=== PATIENT | female | born 1965 | race Caucasian/White ===

== ENCOUNTER 2016-09-18 10:22 | Emergency (ER) | payer MEDICAID, OTHER ==
[~2016-09-18] VITALS: Ht 162.6 cm; Wt 53.0 kg
[~2016-09-18 10:22] MED LIST: ACCUTES19; ALLO100T PO; AMIT100T2 PO; BLOO1KIT65; CARB200T PO; DOXY1CAP91 PO; GABA300C5 PO; IBUP-232 PO; INSU-150; LANTINJ SQ; LISI-519 PO; METF1000 PO; METO25TA3 PO; MEVA40TA PO; [UNRECOGNIZED DRUG - OTHER] SC
[2016-09-18 10:24] VITALS: BP 129/58; PULSE 100; RESP 20; TEMP 98.4; O2SAT 100
--- NOTE | 2016-09-18 10:49 | PD ---
HPI Chief Complaint: Injury Time Seen by Provider: 10:45 Travel History International Travel<30 days: Yes Contact w/Intl Traveler<30days: [place] Traveled to: [place] Traveled to known affect area: No History of Present Illness HPI 51-year-old female presents to the emergency department with complaint of left knee pain after tripping down 1 step yesterday and falling on her left knee. She said her knee cap dislocated yesterday and popped back into place and she is continuing to have knee pain and swelling today. She is ambulatory in the affected extremity. She says it feels like her knee is going to give out. She denies paresthesias, loss of sensation to the extremity. Denies fever, vomiting. Allergies to codeine. Patient has established primary care provider. Has no other medical complaints. No other modifying factors or associated signs and symptoms. PFSH Past Medical History Blood Disorders: No Cardiovascular Problems: Yes Diabetes: Yes Endocrine: No Gout: Yes Genitourinary: No Headaches: Yes Immune Disorder: No Musculoskeletal: No Reproductive: No Respiratory: No Migraines: No Seizures: Yes Ulcer: Yes (GASTRIC) Past Surgical History Abdominal Surgery: Yes Cardiac Surgery: No Ear Surgery: No Endocrine Surgery: No Eye Surgery: No Genitourinary Surgery: No Gynecologic Surgery: No Oral Surgery: No Thoracic Surgery: No Other Surgery: Yes (3 yrs. cyst removal of stomach) Social History Alcohol Use: Yes Tobacco Use: Yes (one pack daily) Substance Use: No Allergies-Medications (Allergen,Severity, Reaction): Coded Allergies: Codeine (Verified Allergy, Severe, 09/18/16) Reported Meds & Prescriptions Reported Meds & Active Scripts Active Ibuprofen 600 Mg Tab 600 Mg PO Q6H PRN Carbamazepine 200 Mg Tab 200 Mg PO TID Metoprolol Tartrate 25 Mg Tab 25 Mg PO BID Metformin (Metformin HCl) 1,000 Mg Tab 1,000 Mg PO BIDPC With meals Amitriptyline (Amitriptyline HCl) 100 Mg Tab 100 Mg PO HS Gabapentin 300 Mg Cap 300 Mg PO TID B-D Safety-[place] Insulin S 29G X 1/2" 0.5 ml 1 Mis Mis 1 Ea .ROUTE DIRECTED Lantus Solostar Pen Inj (Insulin Glargine) 300 Unit/3 Ml Pen 35 Units SQ BID Ibuprofen 600 Mg Tab 600 Mg PO Q6H PRN Allopurinol 100 Mg Tab 100 Mg PO DAILY Doxycycline (Doxycycline (Monohydrate)) 100 Mg Cap 1 Cap PO BID Lisinopril 5 Mg Tab 5 Mg PO DAILY Metformin (Metformin HCl) 1,000 Mg Tab 1,000 Mg PO BIDPC With meals Accu-Chek Strips Gisele Plus (Blood Glucose Test Strips) 1 Ayse Ayse 1 Strips .ROUTE DIRECTED check sugar 3 times a day Accu-Chek Gisele Connect W/Device (Device) 1 Kit Kit 1 Kit .ROUTE DIRECTED check glucose 3 times a day Lovastatin 40 Mg Tab 40 Mg PO HS [ascensia contour] 1 SC TID Review of Systems Except as stated in HPI: all other systems reviewed are Neg Physical Exam Narrative GENERAL: Well-nourished, well-developed female patient, in no acute distress; afebrile, nontoxic-appearing SKIN: Warm and dry. HEAD: Atraumatic. Normocephalic. EYES: Pupils equal and round. No scleral icterus. No injection or drainage. ENT: Mucosa pink and moist. Airway patent. NECK: Trachea midline. CARDIOVASCULAR: Regular rate. RESPIRATORY: No accessory muscle use. GASTROINTESTINAL: Flat. MUSCULOSKELETAL: Left non/edematous, non/erythematous, and without ecchymosis; full range of motion and flexion to 90; point tenderness to the [-] aspect; joint stable with negative drawer test; no obvious deformity. Left Lower extremity is supple and non-tense with 2+ pedal pulse and sensory intact and without erythema or edema. Ambulatory in room with a limp to the left lower extremity. NEUROLOGICAL: Awake and alert. Oriented 3. No obvious cranial nerve deficits. Motor grossly within normal limits. Normal speech. PSYCHIATRIC: Appropriate mood and affect; insight and judgment normal. Data Data Last Documented VS Vital Signs Date Time Temp Pulse Resp B/P Pulse Ox O2 Delivery O2 Flow Rate FiO2 09/18/16 10:24 98.4 100 20 129/58 100 Room Air Orders Knee, Complete (4vws) (09/18/16 10:30) [facility] Medical Decision Making Medical Screen Exam Complete: Yes Emergency Medical Condition: Yes Medical Record Reviewed: Yes Differential Diagnosis Patellar dislocation, patellar fracture, knee contusion, knee strain Narrative Course 51-year-old female with left knee injury. Left knee x-ray ordered. 1104: Left knee x-ray unremarkable. Crutches are provided for support. Patient has an Georges bandage for support. Instructed patient to follow-up with primary care provider. Ibuprofen prescribed for home. Patient verbalizes understanding and agreement with treatment plan. Patient is medically cleared and stable for discharge. Discussed reasons to return to the emergency department. Patient agrees with treatment plan. The patients vital signs are stable and the patient is stable for outpatient follow-up and treatment. Patient discharged home, stable and in no acute distress. Diagnosis Primary Impression: Left knee injury Qualified Code: S89.92XA - Left knee injury, initial encounter Additional Impression: Left knee pain Qualified Code: M25.562 - Left knee pain, unspecified chronicity Referrals: Orthopedist Primary Care Physician Patient Instructions: Crutch Instructions (ED), General Instructions, Knee Pain (ED) Additional Instructions: Tylenol or ibuprofen as needed and as directed to reduce pain and inflammation Rest, ice, compress, and elevate extremity to decrease pain and inflammation Knee brace for support Crutches for support Avoid aggravating activity; increase activity as tolerated Follow-up with primary care provider Follow-up with orthopedics Return to the emergency department immediately with worsening symptoms Med/Other Pt SpecificInfo: Prescription(s) given Scripts Ibuprofen 600 Mg [id number] Mg PO Q6H PRN (PAIN) #20 TAB Ref 0 Prov:Juany Constantino 09/18/16 Disposition: 01 DISCHARGE HOME Condition: Stable Juany Constantino Sep 18, 2016 10:49
--- NOTE | 2016-09-18 10:54 | RADRPT ---
EXAM DATE/TIME: 09/18/2016 10:42 [facility] COMPARISON: No previous studies available for comparison. INDICATIONS : Left knee pain; fell 2 days ago. MEDICAL HISTORY : None. SURGICAL HISTORY : None. ENCOUNTER: Initial ACUITY: 2 days PAIN SCORE: 9/10 LOCATION: Left medial knee FINDINGS: Four view examination of the left knee demonstrates no evidence of fracture or dislocation. Bony min eralization is normal. The articular surfaces are intact. The suprapatellar soft tissues have a nor mal configuration. CONCLUSION: Unremarkable examination of the left knee. Tobin Lozano MD on September 18, 2016 at 10:50 Board Certified Radiologist. This report was verified electronically.
[2016-09-18] MEDS ORDERED: IBUP-232 PO (10:58)
== END 2016-09-18 11:29 | disposition home or self-care (01) ==
LOC: NEPK 10:22
DX: S89.92XA Unspecified injury of left lower leg, initial encounter (principal); F17.210 Nicotine dependence, cigarettes, uncomplicated; W10.9XXA Fall (on) (from) unspecified stairs and steps, initial encounter
CPT/HCPCS: 73564; 99283; E0113

== ENCOUNTER 2016-09-20 11:23 | Emergency (ER) | payer MEDICARE, OTHER ==
[~2016-09-20] VITALS: Ht 162.6 cm; Wt 53.0 kg
[2016-09-20 11:28] VITALS: BP 191/83; PULSE 94; RESP 14; TEMP 98.2; O2SAT 98
[2016-09-20] MEDS ORDERED: DEXTROSE 50% IN WATER 50 ML SYRINGE ONE (11:34)
--- NOTE | 2016-09-20 11:36 | PD ---
HPI Chief Complaint: Neuro Symptoms/ Deficits Time Seen by Provider: 11:33 Travel History International Travel<30 days: No Contact w/Intl Traveler<30days: No History of Present Illness HPI The patient's 51 years old. She arrives by private vehicle. A friend of hers visited her home today and found her minimally responsive. She was last seen normal last night. She was hastily brought to the ER and here the patient was found to be hypoglycemic and received D50 as well as orange juice. Her mentation normalized however right upper and right lower extremity weakness was observed. PFSH Past Medical History Blood Disorders: No Cardiovascular Problems: Yes Cerebrovascular Accident: Yes (TIA) Diabetes: Yes Endocrine: No Gout: Yes Genitourinary: No Headaches: Yes Immune Disorder: No Musculoskeletal: No Reproductive: No Respiratory: No Migraines: No Seizures: Yes Ulcer: Yes (GASTRIC) Ovarian Cysts: Yes Past Surgical History Abdominal Surgery: Yes Cardiac Surgery: No Ear Surgery: No Endocrine Surgery: No Eye Surgery: No Genitourinary Surgery: No Gynecologic Surgery: Yes (OVARIAN CYSTS REMOVAL) Oral Surgery: No Thoracic Surgery: No Other Surgery: Yes (3 yrs. cyst removal of stomach) Social History Alcohol Use: Yes (OCCASIONAL) Tobacco Use: Yes (5 PER DAY) Substance Use: No Allergies-Medications (Allergen,Severity, Reaction): Coded Allergies: Codeine (Verified Allergy, Severe, 09/18/16) Reported Meds & Prescriptions Reported Meds & Active Scripts Active Ibuprofen 600 Mg Tab 600 Mg PO Q6H PRN Carbamazepine 200 Mg Tab 200 Mg PO TID Metoprolol Tartrate 25 Mg Tab 25 Mg PO BID Metformin (Metformin HCl) 1,000 Mg Tab 1,000 Mg PO BIDPC With meals Amitriptyline (Amitriptyline HCl) 100 Mg Tab 100 Mg PO HS Gabapentin 300 Mg Cap 300 Mg PO TID B-D Safety-[place] Insulin S 29G X 1/2" 0.5 ml 1 Mis Mis 1 Ea .ROUTE DIRECTED Lantus Solostar Pen Inj (Insulin Glargine) 300 Unit/3 Ml Pen 35 Units SQ BID Ibuprofen 600 Mg Tab 600 Mg PO Q6H PRN Allopurinol 100 Mg Tab 100 Mg PO DAILY Doxycycline (Doxycycline (Monohydrate)) 100 Mg Cap 1 Cap PO BID Lisinopril 5 Mg Tab 5 Mg PO DAILY Metformin (Metformin HCl) 1,000 Mg Tab 1,000 Mg PO BIDPC With meals Accu-Chek Strips Gisele Plus (Blood Glucose Test Strips) 1 Ayse Ayse 1 Strips .ROUTE DIRECTED check sugar 3 times a day Accu-Chek Gisele Connect W/Device (Device) 1 Kit Kit 1 Kit .ROUTE DIRECTED check glucose 3 times a day Lovastatin 40 Mg Tab 40 Mg PO HS [ascensia contour] 1 SC TID Review of Systems Except as stated in HPI: all other systems reviewed are Neg Physical Exam Narrative GENERAL: 51-year-old female well-nourished well-developed GCS of 14 (verbal 4) SKIN: Focused skin assessment warm/dry. HEAD: Atraumatic. Normocephalic. EYES: Pupils equal and round. No scleral icterus. No injection or drainage. ENT: No nasal bleeding or discharge. Mucous membranes pink and moist. NECK: Trachea midline. No JVD. CARDIOVASCULAR: Regular rate and rhythm. No murmur appreciated. RESPIRATORY: No accessory muscle use. Clear to auscultation. Breath sounds equal bilaterally. GASTROINTESTINAL: Abdomen soft, non-tender, nondistended. Hepatic and splenic margins not palpable. MUSCULOSKELETAL: No obvious deformities. No clubbing. No cyanosis. No edema. NEUROLOGICAL: GCS 14 (verbal 4). Handgrip is weak on the right compared to left. Elevation of the right leg is limited compared to the left side. There appears to be mild depression of the nasolabial fold on the right side. PSYCHIATRIC: Appropriate mood and affect; insight and judgment normal. Data Data Last Documented VS Vital Signs Date Time Temp Pulse Resp B/P Pulse Ox O2 Delivery O2 Flow Rate FiO2 09/20/16 11:49 98 09/20/16 11:45 97.6 93 16 178/86 Vital signs reviewed Orders Basic Metabolic Panel (Bmp) (09/20/16 11:33) Complete Blood Count With Diff (09/20/16 11:33) Blood Glucose (09/20/16 11:33) Ecg Monitoring (09/20/16 11:33) Iv Access Insert/Monitor (09/20/16 11:33) Oximetry (09/20/16 11:33) Sodium Chloride 0.9% Flush (Ns Flush) (09/20/16 11:45) Dextrose 50% In Laura (Vial) Inj (D50w (Vi (09/20/16 11:45) Dextrose 50% In Laura (Syr) Inj (D50w (Syr (09/20/16 11:34) Drug Screen, Random Urine (09/20/16 11:35) Ct Brain W/O Iv Contrast(Rout) (09/20/16 11:35) Blood Glucose (09/20/16 11:35) Blood Glucose (09/20/16 12:35) Alcohol (Ethanol) (09/20/16 11:40) Hepatic Functional Panel (09/20/16 11:40) Lipase (09/20/16 11:40) Labs Laboratory Tests Test 09/20/16 11:40 White Blood Count 19.0 TH/MM3 Red Blood Count 4.16 MIL/MM3 Hemoglobin 12.3 GM/DL Hematocrit 38.2 % Mean Corpuscular Volume 92.0 FL Mean Corpuscular Hemoglobin 29.7 PG Mean Corpuscular Hemoglobin 32.3 % Concent Red Cell Distribution Width 14.1 % Platelet Count 307 TH/MM3 Mean Platelet Volume 8.3 FL Neutrophils (%) (Auto) 68.3 % Lymphocytes (%) (Auto) 23.9 % Monocytes (%) (Auto) 7.5 % Eosinophils (%) (Auto) 0.1 % Basophils (%) (Auto) 0.2 % Neutrophils # (Auto) 13.0 TH/MM3 Lymphocytes # (Auto) 4.5 TH/MM3 Monocytes # (Auto) 1.4 TH/MM3 Eosinophils # (Auto) 0.0 TH/MM3 Basophils # (Auto) 0.0 TH/MM3 CBC Comment DIFF FINAL Differential Comment MDM Medical Decision Making Medical Screen Exam Complete: Yes Emergency Medical Condition: Yes Medical Record Reviewed: Yes Differential Diagnosis Stroke, TIA, hypoglycemia, electrolyte imbalance, radiculopathy, metabolic abnormality Narrative Course Patient elected to leave AGAINST MEDICAL ADVICE. The time of her departure she demonstrated normal speech memory and mentation. She had a brisk response to [place] juice and IV dextrose. At the time of her departure she demonstrated competence to understand that in so doing she placed herself at risk for permanent disability pain and suffering. Diagnosis Primary Impression: Left against medical advice Admitting Information Admitting Physician Requests: Observation Erick Smith MD Sep 20, 2016 11:36
[2016-09-20 11:40] VITALS: O2SAT 98
[2016-09-20 11:45] VITALS: BP 178/86; PULSE 93; RESP 16; TEMP 97.6; O2SAT 98
[2016-09-20] MEDS ORDERED: SODIUM CHLORIDE 0.9% FLUSH 5 ML FLUSH IV FLUSH PRN (11:45)
[2016-09-20] MEDS ORDERED: DEXTROSE 50% IN WATER 50 ML VIAL(D50) IV PUSH ONE (11:45)
--- NOTE | 2016-09-20 12:17 | RADRPT ---
EXAM DATE/TIME: 09/20/2016 12:00 [facility] COMPARISON: No previous studies available for comparison. INDICATIONS : Transient slurred speech and inability to ambulate. RADIATION DOSE: 56.35 CTDIvol (mGy) MEDICAL HISTORY : Cerebrovascular disease. Cardiovascular disease Hypertension. SURGICAL HISTORY : None. ENCOUNTER: Initial ACUITY: 1 day PAIN SCALE: 0/10 LOCATION: cranial TECHNIQUE: Multiple contiguous axial images were obtained of the head. Using automated exposure control and adj ustment of the mA and/or kV according to patient size, radiation dose was kept as low as reasonably a chievable to obtain optimal diagnostic quality images. DICOM format image data is available electro nically for review and comparison. FINDINGS: CEREBRUM: The ventricles are normal for age. No evidence of midline shift, mass lesion, hemorrhage or acute in farction. No extra-axial fluid collections are seen. POSTERIOR FOSSA: The cerebellum and brainstem are intact. The 4th ventricle is midline. The cerebellopontine angle i s unremarkable. EXTRACRANIAL: The visualized portion of the orbits is intact. SKULL: The calvaria is intact. No evidence of skull fracture. CONCLUSION: No acute disease. Trevor Davis MD FACR on September 20, 2016 at 12:14 Board Certified Radiologist. This report was verified electronically.
[2016-09-20 12:19] LABS: BASOPHIL % 0.2 % (0.0-2.0); EOSINOPHIL % 0.1 % (0.0-4.0); HEMATOCRIT 38.2 % (35.0-46.0); HEMO FLAGS DIFF FINAL; LYMPH % 23.9 % (9.0-44.0); LYMPHOCYTE # 4.5 TH/MM3 (1.0-4.8); MEAN CORPUSCULAR HEMOGLOBIN 29.7 PG (27.0-34.0); MEAN CORPUSCULAR HGB CONC 32.3 % (32.0-36.0); MONO % 7.5 % (0.0-8.0); NEUT % 68.3 % (16.0-70.0); PLATELET COUNT 307 TH/MM3 (150-450); RED BLOOD COUNT 4.16 MIL/MM3 (4.00-5.30); RED CELL DISTRIBUTION WIDTH 14.1 % (11.6-17.2)
== END 2016-09-20 12:50 | disposition left against medical advice (07) ==
LOC: NEPC 11:23
DX: E11.649 Type 2 diabetes mellitus with hypoglycemia without coma (principal); M10.9 Gout, unspecified; M62.81 Muscle weakness (generalized); R56.9 Unspecified convulsions; F17.200 Nicotine dependence, unspecified, uncomplicated; Z79.4 Long term (current) use of insulin; Z79.899 Other long term (current) drug therapy; Z86.73 Personal history of transient ischemic attack (TIA), and cerebral infarction without residual deficits
CPT/HCPCS: 70450; 80048; 80076; 80307; 83690; 85025; 96374

== ENCOUNTER 2016-10-15 17:23 | Emergency (ER) | payer MEDICARE ==
[~2016-10-15] VITALS: Ht 162.6 cm; Wt 52.0 kg
[~2016-10-15 17:23] MED LIST changes: +FURO1TAB62 PO
[2016-10-15 17:25] VITALS: BP 142/78; PULSE 85; RESP 14; TEMP 98.2; O2SAT 99
[2016-10-15 20:32] VITALS: BP 189/94; PULSE 86; RESP 18; O2SAT 100
--- NOTE | 2016-10-15 20:57 | PD ---
HPI Chief Complaint: Edema Time Seen by Provider: 20:28 Travel History International Travel<30 days: No Contact w/Intl Traveler<30days: No Traveled to known affect area: No History of Present Illness HPI Patient is a 51-year-old female presents with some pain and swelling to bilateral lower extremities worsening over the past few days. Patient states been going on for approximately a week. Patient denies any shortness of breath decreased urine output. She states that she does take medicine for high blood pressure but is not aware of any history of CHF. Denies any cough congestion fevers or liver disease. PFSH Past Medical History Blood Disorders: No Cardiovascular Problems: Yes Cerebrovascular Accident: Yes (TIA) Diabetes: Yes (METFORMIN) Patient Takes Glucophage: Yes Diminished Hearing: No Endocrine: No Gastrointestinal Disorders: No Gout: Yes Genitourinary: No Headaches: Yes Immune Disorder: No Musculoskeletal: No Reproductive: No Respiratory: No Migraines: No Seizures: Yes Ulcer: Yes (GASTRIC) Tetanus Vaccination: < 5 Years Influenza Vaccination: Yes ?: Not Ovarian Cysts: Yes Past Surgical History Abdominal Surgery: Yes Cardiac Surgery: No Ear Surgery: No Endocrine Surgery: No Eye Surgery: No Genitourinary Surgery: No Gynecologic Surgery: Yes (OVARIAN CYSTS REMOVAL) Neurologic Surgery: No Oral Surgery: No Thoracic Surgery: No Other Surgery: Yes (3 yrs. cyst removal of stomach) Social History Alcohol Use: No Tobacco Use: Yes (5 cig a day, today) Substance Use: No Allergies-Medications (Allergen,Severity, Reaction): Coded Allergies: Codeine (Verified Allergy, Severe, 10/15/16) Reported Meds & Prescriptions Reported Meds & Active Scripts Active Lasix (Furosemide) 20 Mg Tab 20 Mg PO DAILY Lasix (Furosemide) 20 Mg Tab 20 Mg PO DAILY Lantus Solostar Pen Inj (Insulin Glargine) 300 Unit/3 Ml Pen 30 Units SQ BID Ibuprofen 600 Mg Tab 600 Mg PO Q6H PRN Carbamazepine 200 Mg Tab 200 Mg PO TID Metoprolol Tartrate 25 Mg Tab 25 Mg PO BID Metformin (Metformin HCl) 1,000 Mg Tab 1,000 Mg PO BIDPC With meals Amitriptyline (Amitriptyline HCl) 100 Mg Tab 100 Mg PO HS Gabapentin 300 Mg Cap 300 Mg PO TID B-D Safety-[place] Insulin S 29G X 1/2" 0.5 ml 1 Mis Mis 1 Ea .ROUTE DIRECTED Allopurinol 100 Mg Tab 100 Mg PO DAILY Doxycycline (Doxycycline (Monohydrate)) 100 Mg Cap 1 Cap PO BID Lisinopril 5 Mg Tab 5 Mg PO DAILY Metformin (Metformin HCl) 1,000 Mg Tab 1,000 Mg PO BIDPC With meals Accu-Chek Strips Gisele Plus (Blood Glucose Test Strips) 1 Ayse Ayse 1 Strips .ROUTE DIRECTED check sugar 3 times a day Accu-Chek Gisele Connect W/Device (Device) 1 Kit Kit 1 Kit .ROUTE DIRECTED check glucose 3 times a day Lovastatin 40 Mg Tab 40 Mg PO HS [ascensia contour] 1 SC TID Review of Systems Except as stated in HPI: all other systems reviewed are Neg Physical Exam Narrative GENERAL: Well-developed well-nourished, thin but in no obvious distress. SKIN: Focused skin assessment warm/dry. HEAD: Atraumatic. Normocephalic. EYES: Pupils equal and round. No scleral icterus. No injection or drainage. ENT: No nasal bleeding or discharge. Mucous membranes pink and moist. NECK: Trachea midline. No JVD. CARDIOVASCULAR: Regular rate and rhythm. No murmur appreciated. 2+ bilateral equal pulses in all 4 extremities. RESPIRATORY: No accessory muscle use. Clear to auscultation. Breath sounds equal bilaterally. GASTROINTESTINAL: Abdomen soft, non-tender, nondistended. Hepatic and splenic margins not palpable. MUSCULOSKELETAL: No obvious deformities. No clubbing. No cyanosis. 2+ pitting edema from the tibial prominence distally over both lower extremities. No skin breakdown no cellulitis. Homans sign is negative. NEUROLOGICAL: Awake and alert. No obvious cranial nerve deficits. Motor grossly within normal limits. Normal speech. PSYCHIATRIC: Appropriate mood and affect; insight and judgment normal. Data Data Last Documented VS Vital Signs Date Time Temp Pulse Resp B/P Pulse Ox O2 Delivery O2 Flow Rate FiO2 10/16/16 00:22 76 16 170/85 99 Room Air 10/15/16 17:25 98.2 Orders Complete Blood Count With Diff (10/15/16 21:07) Comprehensive Metabolic Panel (10/15/16 21:07) Urinalysis - C+S If Indicated (10/15/16 21:07) Iv Access Insert/Monitor (10/15/16 21:07) Ecg Monitoring (10/15/16 21:07) Oximetry (10/15/16 21:07) Sodium Chloride 0.9% Flush (Ns Flush) (10/15/16 21:15) Chest, Pa & Lat (10/15/16 ) Urine Culture (10/15/16 21:40) Furosemide (Lasix) (10/15/16 22:30) Electrocardiogram (10/15/16 ) Troponin I (10/15/16 21:10) Labs Laboratory Tests Test 10/15/16 10/15/16 21:10 21:40 White Blood Count 11.2 TH/MM3 Red Blood Count 2.89 MIL/MM3 Hemoglobin 9.1 GM/DL Hematocrit 27.9 % Mean Corpuscular Volume 96.4 FL Mean Corpuscular Hemoglobin 31.5 PG Mean Corpuscular Hemoglobin 32.7 % Concent Red Cell Distribution Width 14.8 % Platelet Count 333 TH/MM3 Mean Platelet Volume 8.3 FL Neutrophils (%) (Auto) 51.1 % Lymphocytes (%) (Auto) 40.0 % Monocytes (%) (Auto) 6.7 % Eosinophils (%) (Auto) 1.4 % Basophils (%) (Auto) 0.8 % Neutrophils # (Auto) 5.7 TH/MM3 Lymphocytes # (Auto) 4.5 TH/MM3 Monocytes # (Auto) 0.8 TH/MM3 Eosinophils # (Auto) 0.2 TH/MM3 Basophils # (Auto) 0.1 TH/MM3 CBC Comment DIFF FINAL Differential Comment Sodium Level 142 MEQ/L Potassium Level 4.0 MEQ/L Chloride Level 112 MEQ/L Carbon Dioxide Level 24.1 MEQ/L Anion Gap 6 MEQ/L Blood Urea Nitrogen 18 MG/DL Creatinine 0.76 MG/DL Estimat Glomerular Filtration 80 ML/MIN Rate Random Glucose 217 MG/DL Calcium Level 8.0 MG/DL Total Bilirubin 0.1 MG/DL Aspartate Amino Transf 17 U/L (AST/SGOT) Alanine Aminotransferase 23 U/L (ALT/SGPT) Alkaline Phosphatase 74 U/L Troponin I LESS THAN 0.02 NG/ML Total Protein 6.5 GM/DL Albumin 2.9 GM/DL Urine Color YELLOW Urine Turbidity HAZY Urine pH 7.5 Urine Specific [place] 1.024 Urine Protein NEG mg/dL Urine Glucose (UA) 1000 mg/dL Urine Ketones NEG mg/dL Urine Occult Blood NEG Urine Nitrite NEG Urine Bilirubin NEG Urine Urobilinogen LESS THAN 2.0 MG/DL Urine Leukocyte Esterase SMALL Urine RBC 11 /hpf Urine WBC 11 /hpf Urine Squamous Epithelial 6 /hpf Cells Microscopic Urinalysis Comment CULTURE INDICATED MDM Medical Decision Making Medical Screen Exam Complete: Yes Emergency Medical Condition: Yes Differential Diagnosis CHF, acute kidney injury, chronic kidney disease, liver disease, venous stasis, DVT unlikely. Narrative Course Patient roomed in emergency department, her laboratory workup is essentially negative, troponin, CBC CMP within normal limits. Patient EKG also reassuring. The patient's chest x-ray obtained which shows trace pleural effusions. I reviewed her x-ray and under well and with the amount of fluid on her lungs. Again the patient has denied shortness of breath to me. Discussed with her that we could consider putting her hospital for evaluation with echocardiogram that she would rather go home and follow-up with her primary care physician. She states that when she calls the primary care physician she usually can get in the same day. Given this I think that she can be started on low-dose Lasix to follow-up as an outpatient. Discussed signs symptoms that should prompt emergent revisit including shortness of breath fevers cough or congestion. She verbalized understanding and still wishes to go home. He is stable for discharge Diagnosis Primary Impression: Pedal edema Additional Impression: Pleural effusion Med/Other Pt SpecificInfo: Prescription(s) given Scripts Furosemide (Lasix)20 Mg Tab20 Mg PO DAILY #14 TAB Ref 0 Prov:Dong Mccoy MD 10/15/16 Disposition: 01 DISCHARGE HOME Condition: Stable Dong Mccoy MD Oct 15, 2016 20:57
[2016-10-15] MEDS ORDERED: SODIUM CHLORIDE 0.9% FLUSH 10 ML FLUSH IV FLUSH PRN (21:15)
--- NOTE | 2016-10-15 21:26 | RADRPT ---
EXAM DATE/TIME: 10/15/2016 21:17 [facility] COMPARISON: No previous studies available for comparison. INDICATIONS : Evaluate lung status. Bilateral leg swelling. MEDICAL HISTORY : Diabetes mellitus type II. SURGICAL HISTORY : None. ENCOUNTER: Initial ACUITY: 1 week PAIN SCORE: 0/10 LOCATION: Bilateral chest FINDINGS: PA and lateral views of the chest demonstrate the lungs to be hyperaerated without evidence of mass, infiltrate or effusion. Small pleural effusions. The cardiomediastinal contours are unremarkable. Os seous structures are intact. CONCLUSION: 1. Hyperaeration without infiltrate. 2. Small pleural effusions. Rodrigo Mathew MD on October 15, 2016 at 21:23 Board Certified Radiologist. This report was verified electronically.
[2016-10-15 21:44] LABS: AUTOMATED NEUTROPHIL # 5.7 TH/MM3 (1.8-7.7); BASOPHIL # 0.1 TH/MM3 (0-0.2); BASOPHIL % 0.8 % (0.0-2.0); EOSINOPHIL # 0.2 TH/MM3 (0-0.4); EOSINOPHIL % 1.4 % (0.0-4.0); HEMATOCRIT 27.9 % (35.0-46.0); HEMO FLAGS DIFF FINAL; LYMPHOCYTE # 4.5 TH/MM3 (1.0-4.8); MEAN CELL VOLUME 96.4 FL (80.0-100.0); MEAN CORPUSCULAR HEMOGLOBIN 31.5 PG (27.0-34.0); MEAN CORPUSCULAR HGB CONC 32.7 % (32.0-36.0); MONO % 6.7 % (0.0-8.0); NEUT % 51.1 % (16.0-70.0); PLATELET COUNT 333 TH/MM3 (150-450); RED BLOOD COUNT 2.89 MIL/MM3 (4.00-5.30); RED CELL DISTRIBUTION WIDTH 14.8 % (11.6-17.2); WHITE BLOOD COUNT 11.2 TH/MM3 (4.0-11.0)
[2016-10-15 21:49] LABS: ANION GAP 6 MEQ/L (5-15); AST (GOT) 17 U/L (15-37); BICARBONATE 24.1 MEQ/L (21.0-32.0); BLOOD UREA NITROGEN 18 MG/DL (7-18); CHLORIDE 112 MEQ/L (98-107); GLOMERULAR FILTRATION RATE 80 ML/MIN (>89); SODIUM (NA) 142 MEQ/L (136-145)
[2016-10-15 21:50] LABS: ALT (GPT) 23 U/L (10-53)
[2016-10-15 21:52] LABS: ALKALINE PHOSPHATASE 74 U/L (45-117); TOTAL BILIRUBIN ADULT 0.1 MG/DL (0.2-1.0)
[2016-10-15 21:56] LABS: BLOOD, URINE NEG (NEG); COMMENT (UR) CULTURE INDICATED; CULTURE IF INDICATED CULTURE INDICATED; GLUCOSE,URINE 1000 mg/dL (NEG); KETONE, URINE NEG (NEG); NITRITE,URINE NEG (NEG); PH, URINE 7.5 (5.0-8.5); SQUAMOUS EPITHELIAL CELL URINE 6 /hpf (0-5); URINE COLOR YELLOW (YELLW/STRAW)
[2016-10-15] MEDS ORDERED: FUROSEMIDE 20 MG TAB PO ONE (22:30)
[2016-10-15] MEDS ORDERED: FURO1TAB62 PO (22:31)
[2016-10-16 00:22] VITALS: BP 170/85; PULSE 76; RESP 16; O2SAT 99
--- NOTE | 2016-10-16 20:53 | EKG ---
Date Performed: 10/15/2016 Time Performed: 23:45:44 PTAGE: 51 years EKG: Sinus rhythm NORMAL ECG Compared to prior tracing no significant change DOCTOR: Selina Schilling Interpretating Date/Time 10/16/2016 20:52:17
[2016-10-18] MEDS ORDERED: FURO1TAB62 PO (15:10)
[2016-10-29] MEDS ORDERED: FURO1TAB62 PO (14:30)
== END 2016-10-15 23:50 | disposition home or self-care (01) ==
LOC: NEPD 17:23
DX: R60.9 Edema, unspecified (principal); J90 Pleural effusion, not elsewhere classified; E11.9 Type 2 diabetes mellitus without complications; M10.9 Gout, unspecified; R56.9 Unspecified convulsions; F17.210 Nicotine dependence, cigarettes, uncomplicated; Z86.73 Personal history of transient ischemic attack (TIA), and cerebral infarction without residual deficits; Z79.4 Long term (current) use of insulin
CPT/HCPCS: 71020; 80053; 81001; 84484; 85025; 87086; 93005; 99285

== ENCOUNTER 2017-01-07 09:12 | Observation (INO) | payer MEDICARE ==
[~2017-01-07] VITALS: Ht 165.1 cm; Wt 55.0 kg
[~2017-01-07 09:12] MED LIST changes: +ASPI81CH CHEW; -DOXY1CAP91 PO; +LIDO5%T TOPICAL; +LOVA40TA PO; -MEVA40TA PO; +NICO14DI T-DERMAL
[2017-01-07 09:14] VITALS: BP 155/73; PULSE 103; RESP 20; TEMP 99; O2SAT 96
--- NOTE | 2017-01-07 09:33 | PD ---
HPI Chief Complaint: Diabetic Time Seen by Provider: 09:33 Travel History International Travel<30 days: No Contact w/Intl Traveler<30days: No Traveled to known affect area: No History of Present Illness HPI 51-year-old female came to the emergency room with history of altered mental status. Her son brought her in and he is a one who is giving the history. As per him this has happened to her in the past few times and she needed to be brought to the emergency room. Altered mental status has been going on since yesterday but patient refused to come into the emergency room yesterday. Today she has been lethargic and not making sense when she talks. Vital signs were mostly stable. She is a diabetic and a bedside blood glucose was done which was 23. I was called emergently in the room since patient was a difficult IV access. No history of syncopal episode. No history of fever or chills. PFSH Past Medical History Narrative Medical List of her past medical, surgical, social and family history is reviewed from the nursing note. Blood Disorders: No Cardiovascular Problems: Yes Cerebrovascular Accident: Yes (TIA) Diabetes: Yes (METFORMIN) Diminished Hearing: No Endocrine: No Gastrointestinal Disorders: No Gout: Yes Genitourinary: No Headaches: Yes Immune Disorder: No Musculoskeletal: No Reproductive: No Respiratory: No Migraines: No Seizures: Yes Ulcer: Yes (GASTRIC) ?: Not Ovarian Cysts: Yes Past Surgical History Abdominal Surgery: Yes Cardiac Surgery: No Ear Surgery: No Endocrine Surgery: No Eye Surgery: No Genitourinary Surgery: No Gynecologic Surgery: Yes (OVARIAN CYSTS REMOVAL) Neurologic Surgery: No Oral Surgery: No Thoracic Surgery: No Other Surgery: Yes (3 yrs. cyst removal of stomach) Social History Alcohol Use: No Tobacco Use: Yes (5 cig a day, today) Substance Use: No Allergies-Medications (Allergen,Severity, Reaction): Coded Allergies: No Known Allergies (Unverified , 01/07/17) Comments No known drug allergies. Reported Meds & Prescriptions Reported Meds & Active Scripts Active Lidocaine Topical (Lidocaine HCl) 5 % Oint 1 Applic TOPICAL QID PRN Apply to area(s) of pain up to 4X per day Nicotine Patch (Nicotine) 14 Mg/24 Hr Patch 14 Mg T-DERMAL DAILY Aspirin 81 Mg Chew 81 Mg CHEW DAILY Lovastatin 40 Mg Tab 40 Mg PO DAILY Ibuprofen 600 Mg Tab 600 Mg PO Q6H PRN Lasix (Furosemide) 20 Mg Tab 20 Mg PO DAILY Lantus Solostar Pen Inj (Insulin Glargine) 300 Unit/3 Ml Pen 30 Units SQ BID Carbamazepine 200 Mg Tab 200 Mg PO TID Metoprolol Tartrate 25 Mg Tab 25 Mg PO BID Metformin (Metformin HCl) 1,000 Mg Tab 1,000 Mg PO BIDPC With meals Amitriptyline (Amitriptyline HCl) 100 Mg Tab 100 Mg PO HS Gabapentin 300 Mg Cap 300 Mg PO TID B-D Safety-Hutchinson Insulin S 29G X 1/2" 0.5 ml 1 Mis Mis 1 Ea .ROUTE DIRECTED Allopurinol 100 Mg Tab 100 Mg PO DAILY Lisinopril 5 Mg Tab 5 Mg PO DAILY Metformin (Metformin HCl) 1,000 Mg Tab 1,000 Mg PO BIDPC With meals Accu-Chek Strips Gisele Plus (Blood Glucose Test Strips) 1 Ayse Ayse 1 Strips .ROUTE DIRECTED check sugar 3 times a day Accu-Chek Gisele Connect W/Device (Device) 1 Kit Kit 1 Kit .ROUTE DIRECTED check glucose 3 times a day [ascensia contour] 1 SC TID Narrative Medication List of her home medications reviewed from the nursing note. Review of Systems Except as stated in HPI: all other systems reviewed are Neg Physical Exam Narrative GENERAL: Altered mental status, lethargic, moderate distress SKIN: Focused skin assessment warm/dry. HEAD: Atraumatic. Normocephalic. EYES: Pupils equal and round. No scleral icterus. No injection or drainage. ENT: No nasal bleeding or discharge. Dry mucous membrane NECK: Trachea midline. No JVD. CARDIOVASCULAR: Regular rate and rhythm. No murmur appreciated. RESPIRATORY: No accessory muscle use. Clear to auscultation. Breath sounds equal bilaterally. GASTROINTESTINAL: Abdomen soft, non-tender, nondistended. Hepatic and splenic margins not palpable. MUSCULOSKELETAL: No obvious deformities. No clubbing. No cyanosis. No edema. NEUROLOGICAL: GCS of 13. No obvious cranial nerve deficits. Motor grossly within normal limits. Normal speech. PSYCHIATRIC: Appropriate mood and affect; insight and judgment normal. Data Data Last Documented VS Vital Signs Date Time Temp Pulse Resp B/P (MAP) Pulse Ox O2 Delivery O2 Flow Rate FiO2 01/07/17 11:49 86 18 169/83 (111) 100 Room Air 01/07/17 10:33 2.00 01/07/17 09:14 99.0 Orders Orders Electrocardiogram (01/07/17 10:11) Ammonia (01/07/17 10:11) Complete Blood Count With Diff (01/07/17 10:11) Comprehensive Metabolic Panel (01/07/17 10:11) Creatine Kinase (Cpk) (01/07/17 10:11) Prothrombin Time / Inr (Pt) (01/07/17 10:11) Troponin I (01/07/17 10:11) Thyroid Stimulating Hormone (01/07/17 10:11) Urinalysis - C+S If Indicated (01/07/17 10:11) Lactic Acid Sepsis Protocol (01/07/17 10:11) Blood Culture (01/07/17 10:11) Chest, Single Ap (01/07/17 10:11) Ct Brain W/O Iv Contrast(Rout) (01/07/17 10:11) Blood Glucose (01/07/17 10:11) Ecg Monitoring (01/07/17 10:11) Iv Access Insert/Monitor (01/07/17 10:11) Oximetry (01/07/17 10:11) Dextrose 50% In Laura (Vial) Inj (D50w (Vi (01/07/17 10:15) Sodium Chloride 0.9% Flush (Ns Flush) (01/07/17 10:15) Sodium Chlor 0.9% 1000 Ml Inj (Ns 1000 M (01/07/17 10:11) Drug Screen, Random Urine (01/07/17 10:11) Alcohol (Ethanol) (01/07/17 10:11) Tylenol (Acetaminophen) (01/07/17 10:11) Salicylates (Aspirin) (01/07/17 10:11) Sodium Chlor 0.9% 1000 Ml Inj (Ns 1000 M (01/07/17 10:15) Blood Glucose (01/07/17 10:11) CKMB (01/07/17 10:10) CKMB% (01/07/17 10:10) Urine Culture (01/07/17 11:15) Ceftriaxone Inj (Rocephin Inj) (01/07/17 12:15) Admit Order (Ed Use Only) (01/07/17 12:44) Place In Observation (01/07/17 ) Vital Signs (Adult) Q4H (01/07/17 12:42) Activity Oob With Assistance (01/07/17 12:42) Bedside Glucose ELADIO.CSUGAR (01/07/17 12:42) Diet Diabetic (01/07/17 Lunch) Sodium Chloride 0.9% Flush (Ns Flush) (01/07/17 12:45) Sodium Chloride 0.9% Flush (Ns Flush) (01/07/17 21:00) Ondansetron Inj (Zofran Inj) (01/07/17 12:45) Comprehensive Metabolic Panel (01/08/17 06:00) Complete Blood Count With Diff (01/08/17 06:00) Pt Request For Service (01/07/17 12:42) Case Management Consult (01/07/17 12:42) Scd Bilateral/Knee High ELADIO.BID (01/07/17 12:42) Naloxone Inj (Narcan Inj) (01/07/17 12:45) Magnesium Hydroxide Liq (Milk Of Magnesi (01/07/17 12:45) Sennosides (Senokot) (01/07/17 12:45) Bisacodyl Supp (Dulcolax Supp) (01/07/17 12:45) Lactulose Liq (Lactulose Liq) (01/07/17 12:45) Urinalysis - C+S If Indicated (01/07/17 12:47) Labs Laboratory Tests Test 01/07/17 10:10 01/07/17 11:15 White Blood Count 13.4 TH/MM3 Red Blood Count 3.68 MIL/MM3 Hemoglobin 11.3 GM/DL Hematocrit 33.7 % Mean Corpuscular Volume 91.6 FL Mean Corpuscular Hemoglobin 30.7 PG Mean Corpuscular Hemoglobin Concent 33.5 % Red Cell Distribution Width 14.2 % Platelet Count 274 TH/MM3 Mean Platelet Volume 8.2 FL Neutrophils (%) (Auto) 64.4 % Lymphocytes (%) (Auto) 26.8 % Monocytes (%) (Auto) 8.0 % Eosinophils (%) (Auto) 0.4 % Basophils (%) (Auto) 0.4 % Neutrophils # (Auto) 8.7 TH/MM3 Lymphocytes # (Auto) 3.6 TH/MM3 Monocytes # (Auto) 1.1 TH/MM3 Eosinophils # (Auto) 0.1 TH/MM3 Basophils # (Auto) 0.1 TH/MM3 CBC Comment DIFF FINAL Differential Comment Prothrombin Time 10.9 SEC Prothromb Time International Ratio 1.0 RATIO Blood Urea Nitrogen 12 MG/DL Creatinine 0.53 MG/DL Random Glucose 210 MG/DL Total Protein 6.9 GM/DL Albumin 3.0 GM/DL Calcium Level 8.2 MG/DL Alkaline Phosphatase 79 U/L Aspartate Amino Transf (AST/SGOT) 23 U/L Alanine Aminotransferase (ALT/SGPT) 27 U/L Total Bilirubin 0.2 MG/DL Sodium Level 137 MEQ/L Potassium Level 3.3 MEQ/L Chloride Level 104 MEQ/L Carbon Dioxide Level 22.6 MEQ/L Anion Gap 10 MEQ/L Estimat Glomerular Filtration Rate 121 ML/MIN Lactic Acid Level 0.4 mmol/L Ammonia 29 MCMOL/L Total Creatine Kinase 309 U/L Creatine Kinase MB 4.4 NG/ML Creatine Kinase MB % 1.4 % Troponin I 0.03 NG/ML Thyroid Stimulating Hormone 3rd Gen 1.850 uIU/ML Acetaminophen Level LESS THAN 2.0 MCG/ML Ethyl Alcohol Level LESS THAN 3 MG/DL Urine Color YELLOW Urine Turbidity CLOUDY Urine pH 6.5 Urine Specific Jewett 1.013 Urine Protein TRACE mg/dL Urine Glucose (UA) 150 mg/dL Urine Ketones 10 mg/dL Urine Occult Blood NEG Urine Nitrite NEG Urine Bilirubin NEG Urine Urobilinogen LESS THAN 2.0 MG/DL Urine Leukocyte Esterase TRACE Urine RBC 1 /hpf Urine WBC 3 /hpf Urine WBC Clumps RARE Urine Squamous Epithelial Cells 49 /hpf Urine Transitional Epithelial Cells <1 /hpf Urine Bacteria RARE /hpf Urine Hyaline Casts 3 /lpf Microscopic Urinalysis Comment CATH-CULTURE IND Urine Opiates Screen NEG Urine Barbiturates Screen NEG Urine Amphetamines Screen NEG Urine Benzodiazepines Screen NEG Urine Cocaine Screen NEG Urine Cannabinoids Screen NEG [facility] Medical Decision Making Medical Screen Exam Complete: Yes Emergency Medical Condition: Yes Medical Record Reviewed: Yes Interpretation(s) Twelve-lead EKG was reviewed by me. Normal sinus rhythm, normal axis, nonspecific ST-T wave changes. Heart rate of 91 bpm Differential Diagnosis Hypoglycemia, metabolic encephalopathy, sepsis, intracranial bleed Narrative Course 12:15 PM since patient wasn't extremely poor peripheral IV access and required emergent hydration and D50 I decided to put a central line. Please refer to my procedure note. Patient tolerated the central line well. After D50 was given patient perked up quite away and GCS improved to 15. At that point she said that this has happened to her in the past. She denied doing any drugs or alcohol. She understood the gravity of the situation and has agreed to stay in the hospital. She was given 2 L of IV fluid bolus. Blood test results of back and are within acceptable limits. Patient does have a UTI. I've ordered IV Rocephin for her. I would like to admit the patient for altered mental status and continued blood sugar monitoring. Critical Care Narrative Aggregate critical care time was 60 minutes. Time to perform other separately billable procedures was not included in the critical care time. My time did not include minutes spent treating any other patients simultaneously or on activities that did not directly contribute to the patient's treatment. The services I provided to this patient were to treat and/or prevent clinically significant deterioration that could result in: Hypoglycemic coma, UTI, dehydration I provided critical care services requiring my management, as noted below: Chart data review, documentation time, medication orders and management, vital sign assessments/reviewing monitor data, ordering and reviewing lab tests, ordering and interpreting/reviewing x-rays and diagnostic studies, care of the patient and discussion of the patient with the admitting physicians. Procedures Procedure Narrative Emergency department US guided Internal Jugular was performed with patient consent. Linear probe was used in the transverse and sagittal views of the Internal Jugular to assist with vascular access. EKG Prior to Arrival: No Diagnosis Primary Impression: Hypoglycemic coma Additional Impressions: Dehydration UTI (urinary tract infection) Qualified Codes: N39.0 - Urinary tract infection, site not specified Admitting Information Admitting Physician Requests: Mateo Ramirez MD Jan 07, 2017 09:33
[2017-01-07] MEDS ORDERED: SODIUM CHLOR 0.9% 1000 ML INJ 1,000 ML IV SCH (10:11)
[2017-01-07] MEDS ORDERED: SODIUM CHLORIDE 0.9% FLUSH 5 ML FLUSH IV FLUSH PRN (10:15)
[2017-01-07] MEDS ORDERED: SODIUM CHLOR 0.9% 1000 ML INJ 1,000 ML IV ONE (10:15)
[2017-01-07] MEDS ORDERED: DEXTROSE 50% IN WATER 50 ML VIAL(D50) IV PUSH PRN (10:15)
[2017-01-07 10:33] VITALS: BP 142/87; PULSE 90; RESP 18; O2SAT 99
--- NOTE | 2017-01-07 10:43 | RADRPT ---
EXAM DATE/TIME: 01/07/2017 10:26 [facility] COMPARISON: No previous studies available for comparison. INDICATIONS : Congestion, short of breath, line placement MEDICAL HISTORY : None. SURGICAL HISTORY : None. ENCOUNTER: Initial ACUITY: 2 days PAIN SCORE: 0/10 LOCATION: Bilateral chest FINDINGS: A single view of the chest demonstrates the lungs to be symmetrically aerated without evidence of mas s, infiltrate or effusion. Left IJ central venous catheter with tip projecting over the central veno us system. No pneumothorax. The cardiomediastinal contours are unremarkable. Osseous structures are intact with some degenerative spurring of the lower dorsal spine. CONCLUSION: 1. Left IJ central venous catheter with tip projecting over the central venous system. 2. Lungs are clear. No pneumothorax. Benedict Tariq MD on January 07, 2017 at 10:40 Board Certified Radiologist. This report was verified electronically.
[2017-01-07 10:56] LABS: AUTOMATED NEUTROPHIL # 8.7 TH/MM3 (1.8-7.7); BASOPHIL # 0.1 TH/MM3 (0-0.2); BASOPHIL % 0.4 % (0.0-2.0); EOSINOPHIL # 0.1 TH/MM3 (0-0.4); EOSINOPHIL % 0.4 % (0.0-4.0); HEMATOCRIT 33.7 % (35.0-46.0); HEMO FLAGS DIFF FINAL; LYMPH % 26.8 % (9.0-44.0); LYMPHOCYTE # 3.6 TH/MM3 (1.0-4.8); MEAN CELL VOLUME 91.6 FL (80.0-100.0); MEAN CORPUSCULAR HEMOGLOBIN 30.7 PG (27.0-34.0); MEAN CORPUSCULAR HGB CONC 33.5 % (32.0-36.0); NEUT % 64.4 % (16.0-70.0); PLATELET COUNT 274 TH/MM3 (150-450); RED BLOOD COUNT 3.68 MIL/MM3 (4.00-5.30); RED CELL DISTRIBUTION WIDTH 14.2 % (11.6-17.2); WHITE BLOOD COUNT 13.4 TH/MM3 (4.0-11.0)
[2017-01-07 11:04] LABS: PROTHROMBIN TIME - PATIENT 10.9 SEC (9.8-11.6)
[2017-01-07 11:14] LABS: ALT (GPT) 27 U/L (10-53); ANION GAP 10 MEQ/L (5-15); AST (GOT) 23 U/L (15-37); BICARBONATE 22.6 MEQ/L (21.0-32.0); BLOOD UREA NITROGEN 12 MG/DL (7-18); CHLORIDE 104 MEQ/L (98-107); GLOMERULAR FILTRATION RATE 121 ML/MIN (>89); POTASSIUM 3.3 MEQ/L (3.5-5.1); SODIUM (NA) 137 MEQ/L (136-145)
--- NOTE | 2017-01-07 11:16 | RADRPT ---
EXAM DATE/TIME: 01/07/2017 10:48 [facility] COMPARISON: CT BRAIN W/O CONTRAST, September 20, 2016, 12:00. INDICATIONS : Patient hallucinating since yesterday RADIATION DOSE: 56.35 CTDIvol (mGy) MEDICAL HISTORY : Cardiovascular disease. Hypertension. Diabetes mellitus type 2. SURGICAL HISTORY : None. ENCOUNTER: Initial ACUITY: 1 day PAIN SCALE: 0/10 LOCATION: cranial TECHNIQUE: Multiple contiguous axial images were obtained of the head. Using automated exposure control and adj ustment of the mA and/or kV according to patient size, radiation dose was kept as low as reasonably a chievable to obtain optimal diagnostic quality images. DICOM format image data is available electro nically for review and comparison. FINDINGS: CEREBRUM: The ventricles are normal for age. No evidence of midline shift, mass lesion, hemorrhage or acute in farction. No extra-axial fluid collections are seen. POSTERIOR FOSSA: The cerebellum and brainstem are intact. The 4th ventricle is midline. The cerebellopontine angle i s unremarkable. EXTRACRANIAL: The visualized portion of the orbits is intact. SKULL: The calvaria is intact. No evidence of skull fracture. CONCLUSION: Negative exam. No change from prior. Benedict Tariq MD on January 07, 2017 at 11:13 Board Certified Radiologist. This report was verified electronically.
[2017-01-07 11:24] LABS: ALKALINE PHOSPHATASE 79 U/L (45-117); CREATINE KINASE 309 U/L (26-192); TOTAL BILIRUBIN ADULT 0.2 MG/DL (0.2-1.0)
[2017-01-07 11:25] LABS: ACETAMINOPHEN LESS THAN 2.0 MCG/ML (10.0-30.0); ALCOHOL LESS THAN 3 MG/DL (0-5)
[2017-01-07 11:38] LABS: CKMB 4.4 NG/ML (0.5-3.6)
[2017-01-07 11:48] LABS: BACTERIA, URINE RARE /hpf; BLOOD, URINE NEG (NEG); GLUCOSE,URINE 150 mg/dL (NEG); HYALINE CAST, URINE 3 /lpf (RARE); KETONE, URINE 10 mg/dL (NEG); NITRITE,URINE NEG (NEG); PH, URINE 6.5 (5.0-8.5); SQUAMOUS EPITHELIAL CELL URINE 49 /hpf (0-5); TRANSITIONAL EPI CELLS, URINE <1 /hpf; URINE COLOR YELLOW (YELLW/STRAW)
[2017-01-07 11:49] VITALS: BP 169/83; PULSE 86; RESP 18; O2SAT 100
[2017-01-07 11:53] LABS: COMMENT (UR) CATH-CULTURE IND; CULTURE IF INDICATED CATH CULTURE IND
[2017-01-07] MEDS ORDERED: cefTRIAXone INJ 1,000 MG in SODIUM CHLORIDE 0.9% INJ 100 ML IV ONE (12:15)
[2017-01-07] MEDS ORDERED: ONDANSETRON HCL 4 MG/2 ML VIAL IVP PRN (12:45)
[2017-01-07] MEDS ORDERED: SENNOSIDES 8.6 MG TAB PO PRN (12:45)
[2017-01-07] MEDS ORDERED: MAGNESIUM HYDROXIDE SUSP 30 ML CUP PO PRN (12:45)
[2017-01-07] MEDS ORDERED: NALOXONE HCL 0.4 MG/ML AMP IV PUSH PRN (12:45)
[2017-01-07] MEDS ORDERED: LACTULOSE SYRUP 20 GM/30 ML CUP PO PRN (12:45)
[2017-01-07] MEDS ORDERED: BISACODYL 10 MG SUPP RECTAL PRN (12:45)
[2017-01-07] MEDS ORDERED: SODIUM CHLORIDE 0.9% FLUSH 10 ML FLUSH IV FLUSH PRN (12:45)
[2017-01-07] MEDS ORDERED: DEXTROSE 50% IN WATER 50 ML SYRINGE ONE (12:59)
[2017-01-07] MEDS ORDERED: LANTUS2P SQ (13:03)
[2017-01-07] MEDS ORDERED: POTASSIUM CHLORIDE 10 MEQ CONTROLLED RELEASE TAB PO ONE (14:00)
--- NOTE | 2017-01-07 14:59 | HHI.HP ---
HPI Service Family Medicine Primary Care Physician Unknown Admission Diagnosis hypoglycemic coma, dehydration Diagnoses: International Travel<30 Days: No Contact w/Intl Traveler<30days: No Known Affected Area: No History of Present Illness 51-year-old female with type 1 diabetes, hypertension, gout, irritable bowel syndrome, TIA, and insomnia, presenting to [facility] with altered mental status. She was brought into the ED by her son. Per ED documentation, the patient was altered yesterday 01/06/2017, however refused to come into the ED. Today her mentation worsened and she also became more lethargic. Her bedside accucheck was 27. A central line was place emergently (due to poor peripheral access) and an amp of D50 was given. After this, the patient perked up and GCS improved to 15. Patient initially admitted to [facility], however is a patient of our Family Medicine practice. Yesterday, Saturday 01/06 was having visual hallucinations seeing things on the floor that where not there. The son reports that she was seeing worms on the floor. This lasted the entire day. She had been seeing these worms for 1 day prior to this (at least 24 hours). The son was at her house for an hour. He noticed that "her behavior was different". Mainly the visual hallucinations. Her sugar in AM yesterday was 134 g/dL (10 minutes after injecting insulin). Did not check her BG afterwards. She typically takes 1000 mg metformin BID and Insulin 35 units Lantus twice daily. This morning she called her son Zechariah and she sounded more confused. She was not making any sense with what she was saying. Her son then brought her to ED. She has been having decreased PO intake. She only ate a sandwich (cheese). She denies having any appetite to eat. Denies taking an insulin this morning. Denies drug use. Denies intentional harm to self. ROS: Cough x 3 days, non productive Denies rashes, chest pain, shortness of breath, muscle pain, abdominal pain, dark or tarry stools, headaches, changes in mood, palpitations, weakness, visual changes, N/V/D, vaginal bleeding. 1 month ago possibly fell and scratched her forehead. Bleeding large amount, the size of "gallon of blood on the floor" at least. Not having thoughts of taking her life or harming others. Never had visual hallucinations previously. Past Family Social History Past Medical History Hypertension Poorly controlled Type 2 diabetes with nerve damage TIA Gout IBS High cholesterol Knee pain Insomnia (has tried many medications, only amitriptyline works) Seizure disorder Past Surgical History Fibroid cyst removed Allergies: Coded Allergies: No Known Allergies (Unverified , 01/07/17) Family History Other Physicians/Providers Involved in the Care of Patient: Ophthalmology: Dr. Rodriguez TRIMMER CLIMBER: 02/2016 Referred Cardiology: Dr. Bryant Family History: Father: 56 Mother: 78 alive Siblings: 6 living; history of heart disease and diabetes Children: 28-year-old male healthy Social History Marital Status: Work history: On disability; previously transition manager Tobacco: 5 cigarettes per day for 31 years Alcohol: Socially Illicit drug use: none Advance Directives: Full code Physical Exam Vital Signs Vital Signs Date Time Temp Pulse Resp B/P (MAP) Pulse Ox O2 Delivery O2 Flow Rate FiO2 01/07/17 11:49 86 18 169/83 (111) 100 Room Air 01/07/17 10:33 90 18 142/87 (105) 99 Nasal Cannula 2.00 01/07/17 09:46 99 20 99 Nasal Cannula 01/07/17 09:14 99.0 103 20 155/73 (100) 96 Room Air Physical Exam GENERAL: This is a well-nourished, well-developed patient, in no apparent distress. SKIN: No rashes, ecchymoses or lesions. Central line in right jugular. C/D/I HEAD: Atraumatic. Normocephalic. No temporal or scalp tenderness. EYES: Pupils equal round and reactive. Extraocular motions intact. No scleral icterus. No injection or drainage. ENT: Nose without bleeding, purulent drainage or septal hematoma. Throat without erythema, tonsillar hypertrophy or exudate. Uvula midline. Airway patent. Upper dentures. NECK: Trachea midline. No JVD or lymphadenopathy. Supple, nontender, no meningeal signs. CARDIOVASCULAR: Regular rate and rhythm without murmurs, gallops, or rubs. faint 2/6 LAISHA at LSB. RESPIRATORY: Clear to auscultation. GASTROINTESTINAL: Abdomen soft, non-tender, nondistended. MUSCULOSKELETAL: Extremities without clubbing, cyanosis, or edema. No joint tenderness, effusion, or edema noted. NEUROLOGICAL: Awake and alert. Cranial nerves II through XII intact. Motor and sensory grossly within normal limits. Five out of 5 muscle strength in all muscle groups. Normal speech. Laboratory Laboratory Tests Test 01/07/17 10:10 01/07/17 11:15 White Blood Count 13.4 Red Blood Count 3.68 Hemoglobin 11.3 Hematocrit 33.7 Mean Corpuscular Volume 91.6 Mean Corpuscular Hemoglobin 30.7 Mean Corpuscular Hemoglobin Concent 33.5 Red Cell Distribution Width 14.2 Platelet Count 274 Mean Platelet Volume 8.2 Neutrophils (%) (Auto) 64.4 Lymphocytes (%) (Auto) 26.8 Monocytes (%) (Auto) 8.0 Eosinophils (%) (Auto) 0.4 Basophils (%) (Auto) 0.4 Neutrophils # (Auto) 8.7 Lymphocytes # (Auto) 3.6 Monocytes # (Auto) 1.1 Eosinophils # (Auto) 0.1 Basophils # (Auto) 0.1 CBC Comment DIFF FINAL Differential Comment Prothrombin Time 10.9 Prothromb Time International Ratio 1.0 Blood Urea Nitrogen 12 Creatinine 0.53 Random Glucose 210 Total Protein 6.9 Albumin 3.0 Calcium Level 8.2 Alkaline Phosphatase 79 Aspartate Amino Transf (AST/SGOT) 23 Alanine Aminotransferase (ALT/SGPT) 27 Total Bilirubin 0.2 Sodium Level 137 Potassium Level 3.3 Chloride Level 104 Carbon Dioxide Level 22.6 Anion Gap 10 Estimat Glomerular Filtration Rate 121 Lactic Acid Level 0.4 Ammonia 29 Total Creatine Kinase 309 Creatine Kinase MB 4.4 Creatine Kinase MB % 1.4 Troponin I 0.03 Thyroid Stimulating Hormone 3rd Gen 1.850 Salicylates Level 5.6 Acetaminophen Level LESS THAN 2.0 Ethyl Alcohol Level LESS THAN 3 Urine Color YELLOW Urine Turbidity CLOUDY Urine pH 6.5 Urine Specific [place] 1.013 Urine Protein TRACE Urine Glucose (UA) 150 Urine Ketones 10 Urine Occult Blood NEG Urine Nitrite NEG Urine Bilirubin NEG Urine Urobilinogen LESS THAN 2.0 Urine Leukocyte Esterase TRACE Urine RBC 1 Urine WBC 3 Urine WBC Clumps RARE Urine Squamous Epithelial Cells 49 Urine Transitional Epithelial Cells <1 Urine Bacteria RARE Urine Hyaline Casts 3 Microscopic Urinalysis Comment CATH-CULTURE IND Urine Opiates Screen NEG Urine Barbiturates Screen NEG Urine Amphetamines Screen NEG Urine Benzodiazepines Screen NEG Urine Cocaine Screen NEG Urine Cannabinoids Screen NEG Date/Time Source Procedure Growth Status 01/07/17 10:50 Blood Peripheral Aerobic Blood Culture Pending Received 01/07/17 10:50 Blood Peripheral Anaerobic Blood Culture Pending Received 01/07/17 11:15 Urine Catheterized Urine Urine Culture Pending Received Result Diagram: 01/07/17 1010 01/07/17 1010 Imaging Last [address] 01/07/17 1011 Signed Impressions: Service Date/Time: Saturday, January 07, 2017 10:48 - CONCLUSION: Negative exam. No change from prior. Benedict Tariq MD Chest X-Ray 01/07/17 1011 Signed Impressions: Service Date/Time: Saturday, January 07, 2017 10:26 - CONCLUSION: 1. Left IJ central venous catheter with tip projecting over the central venous system. 2. Lungs are clear. No pneumothorax. Benedict Tariq MD [place] VTE Risk Assessment Caprini VTE Risk Assessment: Mod/High Risk (score >= 2) Caprini Risk Assessment Model Point Value = 1 Point Value = 2 Point Value = 3 Point Value = 5 Age 41-60 Minor surgery BMI > 25 kg/m2 Swollen legs Varicose veins or History of unexplained or recurrent spontaneous Oral contraceptives or hormone replacement Sepsis (< 1 month) Serious lung disease, including pneumonia (< 1 month) Abnormal pulmonary function Acute myocardial infarction Congestive heart failure (< 1 month) History of inflammatory bowel disease Medical patient at bed rest Age 61-74 Arthroscopic surgery Major open surgery (> 45 min) Laparoscopic surgery (> 45 min) Malignancy Confined to bed (> 72 hours) Immobilizing plaster cast Central venous access Age >= 75 History of VTE Family history of VTE Factor V Leiden Prothrombin [id number] Lupus anticoagulant Anticardiolipin antibodies Elevated serum homocysteine Heparin-induced thrombocytopenia Other congenital or acquired thrombophilia Stroke (< 1 month) Elective arthroplasty Hip, pelvis, or leg fracture Acute spinal cord injury (< 1 month) Prophylaxis Regimen Total Risk Factor Score Risk Level Prophylaxis Regimen 0-1 Low Early ambulation 2 Moderate Order ONE of the following: *Sequential Compression Device (SCD) *Heparin 5000 units SQ BID 3-4 Higher Order ONE of the following medications: *Heparin 5000 units SQ TID *Enoxaparin/Lovenox 40 mg SQ daily (WT < 150 kg, CrCl > 30 mL/min) *Enoxaparin/Lovenox 30 mg SQ daily (WT < 150 kg, CrCl > 10-29 mL/min) *Enoxaparin/Lovenox 30 mg SQ BID (WT < 150 kg, CrCl > 30 mL/min) AND/OR *Sequential Compression Device (SCD) 5 or more Highest Order ONE of the following medications: *Heparin 5000 units SQ TID (Preferred with Epidurals) *Enoxaparin/Lovenox 40 mg SQ daily (WT < 150 kg, CrCl > 30 mL/min) *Enoxaparin/Lovenox 30 mg SQ daily (WT < 150 kg, CrCl > 10-29 mL/min) *Enoxaparin/Lovenox 30 mg SQ BID (WT < 150 kg, CrCl > 30 mL/min) AND *Sequential Compression Device (SCD) Assessment and Plan Assessment and Plan 51 y/o female with PMHx significant for Type 2 diabetes mellitus, hypertension, hyperlipidemia, insomnia, IBS, Gout, and TIAs, presenting with altered mental status. Found to have Bedside glucose of 27 g/dL. Given amp of D50w and came to. She will be admitted for hypoglycemic coma. Code Status Full Code. Problem List: (1) Hypoglycemic coma ICD Codes: E15 - Nondiabetic hypoglycemic coma Status: Acute Plan: Resolved. Received amp of D50 and responded appropriately. Reports decreased PO intake recently. Accuchecks TIDAC. Hold all insulin. Get C-peptide to rule out endogenous secretion from insulinoma. (2) Diabetes mellitus ICD Codes: E11.9 - Type 2 diabetes mellitus without complications Status: Acute Plan: A1C was 6.4 in September 2016. Will need to check blood glucose frequently as outpatient. ISS (3) Hyperlipidemia ICD Codes: E78.5 - Hyperlipidemia Status: Acute Plan: Continue statin (4) UTI (urinary tract infection) ICD Codes: N39.0 - Urinary tract infection, site not specified Status: Acute Plan: UA showing trace Leuk esterase, few WBCs. Rocephin 1 g q 24 hours during hospitalization. (5) Visual hallucinations ICD Codes: R44.1 - Visual hallucinations Plan: Consult psychiatry for new visual hallucinations. Appreciate their assistance. (6) Seizure disorder ICD Codes: G40.909 - Epilepsy, unspecified, not intractable, without status epilepticus Plan: No recent evidence of seizure. Continue carbamazepine at and gabapentin TID. (7) Insomnia ICD Codes: G47.00 - Insomnia, unspecified Plan: Amitriptyline 100 mg q Hs. (8) Nutrition, metabolism, and development symptoms ICD Codes: R63.8 - Other symptoms and signs concerning food and fluid intake Plan: Diet: Diabetic Fluids: By mouth DVT ppx: SCDs Electrolytes: K+ 3.3 on admission - given 30 mEq KCL in ED. Continue to monitor. Otherwise at goal. WDW Dr. Gabino Ledesma and Dr. Ashby. Physician Certification 2 Midnight Certification Type: Admission for Inpatient Services Order for Inpatient Services The services are ordered in accordance with Medicare regulations or non- Medicare payer requirements, as applicable. In the case of services not specified as inpatient-only, they are appropriately provided as inpatient services in accordance with the 2-midnight benchmark. Estimated LOS (days): 2 2 days is the estimated time the patient will need to remain in the hospital, assuming treatment plan goals are met and no additional complications. Post-Hospital Plan: Home Problem Qualifiers (1) UTI (urinary tract infection): Qualified Codes: N39.0 - Urinary tract infection, site not specified Teja Ramos MD, R3 Jan 07, 2017 14:59
[2017-01-07 16:00] VITALS: BP 132/78
[2017-01-07] MEDS: INSULIN ASPART SUPPLEMENTAL SCALE SQ SCH ×2 (16:59→21:00)
[2017-01-07] MEDS: carBAMazepine 200 MG TAB PO SCH (18:23)
[2017-01-07] MEDS: GABAPENTIN 300 MG CAP PO SCH (18:23)
[2017-01-07 19:59] VITALS: BP 154/88; PULSE 89; RESP 18; TEMP 98.4; O2SAT 98
[2017-01-07] MEDS ORDERED: AMITRIPTYLINE HCL 100 MG TAB PO SCH (21:00)
[2017-01-07] MEDS: SODIUM CHLORIDE 0.9% FLUSH 10 ML FLUSH IV FLUSH SCH (21:45)
[2017-01-07 23:42] VITALS: BP 178/90; PULSE 101; RESP 20; TEMP 98.4; O2SAT 99
[2017-01-08 04:10] VITALS: BP 203/105; PULSE 86; RESP 18; TEMP 98.4; O2SAT 100
[2017-01-08] MEDS ORDERED: cloNIDine HCL 0.1 MG TAB PO PRN (05:00)
[2017-01-08 05:30] VITALS: BP 140/76
[2017-01-08 07:34] VITALS: BP 177/92; PULSE 97; RESP 22; TEMP 98.7; O2SAT 100
[2017-01-08] MEDS: INSULIN ASPART SUPPLEMENTAL SCALE SQ SCH ×2 (08:00→12:00)
[2017-01-08] MEDS: GABAPENTIN 300 MG CAP PO SCH ×2 (08:41→13:06)
[2017-01-08] MEDS: carBAMazepine 200 MG TAB PO SCH ×2 (08:41→13:06)
[2017-01-08] MEDS: SODIUM CHLORIDE 0.9% FLUSH 10 ML FLUSH IV FLUSH SCH (08:42)
[2017-01-08] MEDS ORDERED: ALLOPURINOL 100 MG TAB PO SCH (09:00)
[2017-01-08] MEDS ORDERED: LISINOPRIL 5 MG TAB PO SCH (09:00)
[2017-01-08] MEDS ORDERED: PRAVASTATIN SOD 40 MG TAB PO SCH (09:00)
[2017-01-08] MEDS ORDERED: ASPIRIN 81 MG CHEW TAB CHEW SCH (09:00)
--- NOTE | 2017-01-08 09:07 | HHI.DCPOC ---
Discharge Care Plan Diagnosis: (1) Diabetes mellitus (2) Hypoglycemia Goals to Promote Your Health * To prevent worsening of your condition and complications * To maintain your health at the optimal level Directions to Meet Your Goals Take your medications as prescribed Follow your dietary instruction Follow activity as directed Keep your appointments as scheduled Take your immunizations and boosters as scheduled If your symptoms worsen call your PCP, if no PCP go to Urgent Care Center or Emergency Room Smoking is Dangerous to Your Health. Avoid second hand smoke Call the 24-hour hour crisis hotline for domestic abuse at Gabino Ledesma MD R3 Jan 08, 2017 09:07
[2017-01-08] MEDS ORDERED: INSU-119 (09:29)
[2017-01-08] MEDS ORDERED: INSU-98 (09:29)
[2017-01-08] MEDS ORDERED: AMIT75TA2 PO (09:29)
[2017-01-08] MEDS ORDERED: NOVOLOGP2 SQ (09:29)
--- NOTE | 2017-01-08 10:04 | HHI.HP ---
HPI Service Family Medicine Primary Care Physician Unknown Admission Diagnosis hypoglycemic coma, dehydration Diagnoses: (1) Hypoglycemic coma Diagnosis: Principal (2) Diabetes mellitus Diagnosis: Principal (3) Hyperlipidemia Diagnosis: Principal (4) UTI (urinary tract infection) (5) Visual hallucinations Diagnosis: Secondary (6) Seizure disorder Diagnosis: Principal (7) Insomnia Diagnosis: Principal (8) Nutrition, metabolism, and development symptoms Diagnosis: Principal International Travel<30 Days: No Contact w/Intl Traveler<30days: No Known Affected Area: No History of Present Illness Ms Guevara is a 51-year-old female with type 1 diabetes, hypertension, gout, irritable bowel syndrome, TIA, and insomnia, presenting to [place] ED with altered mental status found to have profound hypoglycemia. She was brought into the ED by her son. Per ED documentation, the patient was altered 01/06/2017, however refused to come into the ED. 01/07/17 her mentation worsened and she also became more lethargic. Her bedside accucheck was 27. A central line was place emergently (due to poor peripheral access) and an amp of D50 was given. After this, the patient perked up and GCS improved to 15. Patient initially admitted to [facility], however is a patient of our Family Medicine practice. Saturday 01/06 was having visual hallucinations seeing things on the floor that where not there. The son reports that she was seeing worms on the floor. This lasted the entire day. She had been seeing these worms for 1 day prior to this ( at least 24 hours). The son was at her house for an hour. He noticed that "her behavior was different". Mainly the visual hallucinations. Her sugar in AM yesterday was 134 g/dL (10 minutes after injecting insulin). Did not check her BG afterwards. She typically takes 1000 mg metformin BID and Insulin 30 units Lantus twice daily. The morning of admission she called her son Zechariah and she sounded more confused. She was not making any sense with what she was saying. Her son then brought her to ED. She has been having decreased PO intake. She only ate a sandwich (cheese). She denies having any appetite to eat. Denies taking insulin the morning of admission but probably took lantus the night before. Denies drug use. Denies intentional harm to self. ROS: Cough x 3 days, non productive Denies rashes, chest pain, shortness of breath, muscle pain, abdominal pain, dark or tarry stools, headaches, changes in mood, palpitations, weakness, visual changes, N/V/D, vaginal bleeding. 1 month ago possibly fell and scratched her forehead. Bleeding large amount, the size of "gallon of blood on the floor" at least. Not having thoughts of taking her life or harming others. Never had visual hallucinations previously. No Psychiatric history. She reports 2 weeks of low glucoses of less than 70. She has been taking her insulin and metformin regularly. I advised her to call the office if her glucoses were problematic in future either too high or too low. She feels great this am and is up walking to the bathroom. No altered mental status at all once her glucose was corrected. She wants to go home today. Review of Systems Constitutional: COMPLAINS OF: Weight loss, DENIES: Fatigue Respiratory: COMPLAINS OF: Cough Cardiovascular: DENIES: Chest pain, Dyspnea on Exertion Gastrointestinal: DENIES: Anorexia Psychiatric: COMPLAINS OF: Hallucinations, DENIES: Delusions Other ROS: Cough x 3 days, non productive Denies rashes, chest pain, shortness of breath, muscle pain, abdominal pain, dark or tarry stools, headaches, changes in mood, palpitations, weakness, visual changes, N/V/D, vaginal bleeding. Past Family Social History Past Medical History Hypertension Poorly controlled Type 2 diabetes in the past with nerve damage TIA Gout IBS High cholesterol Knee pain Insomnia (has tried many medications, only amitriptyline works) Seizure disorder Past Surgical History Fibroid cyst removed Allergies: Coded Allergies: No Known Allergies (Unverified , 01/07/17) Family History Other Physicians/Providers Involved in the Care of Patient: Ophthalmology: Dr. Rodriguez SUPERVISOR P[employer]W: 02/2016 Referred Cardiology: Dr. Bryant Family History: Father: 56 Mother: 78 alive Siblings: 6 living; history of heart disease and diabetes Children: 28-year-old male healthy Social History Marital Status: Work history: On disability; previously hotel front desk agent Tobacco: 5 cigarettes per day for 31 years Alcohol: Socially Illicit drug use: none Advance Directives: Full code Physical Exam Vital Signs Vital Signs Date Time Temp Pulse Resp B/P (MAP) Pulse Ox O2 Delivery O2 Flow Rate FiO2 01/08/17 07:34 98.7 97 22 177/92 (120) 100 01/08/17 05:30 140/76 (97) 01/08/17 04:10 98.4 86 18 203/105 (137) 100 01/07/17 23:42 98.4 101 20 178/90 (119) 99 01/07/17 19:59 98.4 89 18 154/88 (110) 98 01/07/17 16:00 78 18 132/78 (96) 96 Nasal Cannula 01/07/17 11:49 86 18 169/83 (111) 100 Room Air 01/07/17 10:33 90 18 142/87 (105) 99 Nasal Cannula 2.00 Physical Exam GENERAL: This is a well-nourished, well-developed patient, in no apparent distress. SKIN: No rashes, ecchymoses or lesions. Central line in left jugular. C/D/I HEAD: Atraumatic. Normocephalic. EYES: Pupils equal round and reactive. Extraocular motions intact. No scleral icterus. No injection or drainage. ENT: Nose without bleeding, purulent drainage or septal hematoma. Airway patent. Upper dentures. NECK: Trachea midline. No JVD or lymphadenopathy. Supple, nontender, no meningeal signs. CARDIOVASCULAR: Regular rate and rhythm without murmurs, gallops, or rubs. faint 2/6 LAISHA at LSB. RESPIRATORY: Clear to auscultation. GASTROINTESTINAL: Abdomen soft, non-tender, nondistended. MUSCULOSKELETAL: Extremities without clubbing, cyanosis, or edema. No joint tenderness, effusion, or edema noted. NEUROLOGICAL: Awake and alert. Cranial nerves II through XII intact. Motor and sensory grossly within normal limits. Five out of 5 muscle strength in all muscle groups. Normal speech. Walking to bathroom this am Laboratory Laboratory Tests Test 01/07/17 10:10 01/07/17 11:15 White Blood Count 13.4 Red Blood Count 3.68 Hemoglobin 11.3 Hematocrit 33.7 Mean Corpuscular Volume 91.6 Mean Corpuscular Hemoglobin 30.7 Mean Corpuscular Hemoglobin Concent 33.5 Red Cell Distribution Width 14.2 Platelet Count 274 Mean Platelet Volume 8.2 Neutrophils (%) (Auto) 64.4 Lymphocytes (%) (Auto) 26.8 Monocytes (%) (Auto) 8.0 Eosinophils (%) (Auto) 0.4 Basophils (%) (Auto) 0.4 Neutrophils # (Auto) 8.7 Lymphocytes # (Auto) 3.6 Monocytes # (Auto) 1.1 Eosinophils # (Auto) 0.1 Basophils # (Auto) 0.1 CBC Comment DIFF FINAL Differential Comment Prothrombin Time 10.9 Prothromb Time International Ratio 1.0 Blood Urea Nitrogen 12 Creatinine 0.53 Random Glucose 210 Total Protein 6.9 Albumin 3.0 Calcium Level 8.2 Alkaline Phosphatase 79 Aspartate Amino Transf (AST/SGOT) 23 Alanine Aminotransferase (ALT/SGPT) 27 Total Bilirubin 0.2 Sodium Level 137 Potassium Level 3.3 Chloride Level 104 Carbon Dioxide Level 22.6 Anion Gap 10 Estimat Glomerular Filtration Rate 121 Lactic Acid Level 0.4 Magnesium Level 2.1 Ammonia 29 Total Creatine Kinase 309 Creatine Kinase MB 4.4 Creatine Kinase MB % 1.4 Troponin I 0.03 Thyroid Stimulating Hormone 3rd Gen 1.850 Salicylates Level 5.6 Acetaminophen Level LESS THAN 2.0 Ethyl Alcohol Level LESS THAN 3 Urine Color YELLOW Urine Turbidity CLOUDY Urine pH 6.5 Urine Specific Lambert 1.013 Urine Protein TRACE Urine Glucose (UA) 150 Urine Ketones 10 Urine Occult Blood NEG Urine Nitrite NEG Urine Bilirubin NEG Urine Urobilinogen LESS THAN 2.0 Urine Leukocyte Esterase TRACE Urine RBC 1 Urine WBC 3 Urine WBC Clumps RARE Urine Squamous Epithelial Cells 49 Urine Transitional Epithelial Cells <1 Urine Bacteria RARE Urine Hyaline Casts 3 Microscopic Urinalysis Comment CATH-CULTURE IND Urine Opiates Screen NEG Urine Barbiturates Screen NEG Urine Amphetamines Screen NEG Urine Benzodiazepines Screen NEG Urine Cocaine Screen NEG Urine Cannabinoids Screen NEG Date/Time Source Procedure Growth Status 01/07/17 10:50 Blood Peripheral Aerobic Blood Culture Pending Received 01/07/17 10:50 Blood Peripheral Anaerobic Blood Culture Pending Received 01/07/17 11:15 Urine Catheterized Urine Urine Culture Pending Received Result Diagram: 01/07/17 1010 01/07/17 1010 Imaging Last [address] 01/07/17 1011 Signed Impressions: Service Date/Time: Saturday, January 07, 2017 10:48 - CONCLUSION: Negative exam. No change from prior. Benedict Tariq MD Chest X-Ray 01/07/17 1011 Signed Impressions: Service Date/Time: Saturday, January 07, 2017 10:26 - CONCLUSION: 1. Left IJ central venous catheter with tip projecting over the central venous system. 2. Lungs are clear. No pneumothorax. Benedict Tariq MD Caprini VTE Risk Assessment Caprini VTE Risk Assessment: Mod/High Risk (score >= 2) Caprini Risk Assessment Model Point Value = 1 Point Value = 2 Point Value = 3 Point Value = 5 Age 41-60 Minor surgery BMI > 25 kg/m2 Swollen legs Varicose veins or History of unexplained or recurrent spontaneous Oral contraceptives or hormone replacement Sepsis (< 1 month) Serious lung disease, including pneumonia (< 1 month) Abnormal pulmonary function Acute myocardial infarction Congestive heart failure (< 1 month) History of inflammatory bowel disease Medical patient at bed rest Age 61-74 Arthroscopic surgery Major open surgery (> 45 min) Laparoscopic surgery (> 45 min) Malignancy Confined to bed (> 72 hours) Immobilizing plaster cast Central venous access Age >= 75 History of VTE Family history of VTE Factor V Leiden Prothrombin [id number] Lupus anticoagulant Anticardiolipin antibodies Elevated serum homocysteine Heparin-induced thrombocytopenia Other congenital or acquired thrombophilia Stroke (< 1 month) Elective arthroplasty Hip, pelvis, or leg fracture Acute spinal cord injury (< 1 month) Prophylaxis Regimen Total Risk Factor Score Risk Level Prophylaxis Regimen 0-1 Low Early ambulation 2 Moderate Order ONE of the following: *Sequential Compression Device (SCD) *Heparin 5000 units SQ BID 3-4 Higher Order ONE of the following medications: *Heparin 5000 units SQ TID *Enoxaparin/Lovenox 40 mg SQ daily (WT < 150 kg, CrCl > 30 mL/min) *Enoxaparin/Lovenox 30 mg SQ daily (WT < 150 kg, CrCl > 10-29 mL/min) *Enoxaparin/Lovenox 30 mg SQ BID (WT < 150 kg, CrCl > 30 mL/min) AND/OR *Sequential Compression Device (SCD) 5 or more Highest Order ONE of the following medications: *Heparin 5000 units SQ TID (Preferred with Epidurals) *Enoxaparin/Lovenox 40 mg SQ daily (WT < 150 kg, CrCl > 30 mL/min) *Enoxaparin/Lovenox 30 mg SQ daily (WT < 150 kg, CrCl > 10-29 mL/min) *Enoxaparin/Lovenox 30 mg SQ BID (WT < 150 kg, CrCl > 30 mL/min) AND *Sequential Compression Device (SCD) Assessment and Plan Assessment and Plan 51 y/o female with PMHx significant for Type 2 diabetes mellitus, hypertension, hyperlipidemia, insomnia, IBS, Gout, and TIAs, presenting with altered mental status. Found to have Bedside glucose of 27 g/dL. Given amp of D50w and came to. She will be admitted for hypoglycemic coma. She wants to go home today and is back to normal with her glucoses. She will follow up with her Dr, Dr Simeon and knows to call the office if her glucoses are out of control or she needs help Problem List: (1) Hypoglycemic coma ICD Codes: E15 - Nondiabetic hypoglycemic coma Status: Acute Plan: Resolved. Received amp of D50 and responded appropriately. Reports decreased PO intake recently. Accuchecks TIDAC. Hold all insulin initially. Get C-peptide to rule out endogenous secretion from insulinoma. Suspect she needs less insulin overall. She has lost some weight and is exercising better and eating less or no concentrated sweets. Her glucose control was poor a year ago but is much better now and will hold her lantus and give short acting only as needed for now. can see how much insulin she requires and then consider a 50 % long acting and 50% short acting regimin as she checks her glucoses TID normally at home (2) Diabetes mellitus ICD Codes: E11.9 - Type 2 diabetes mellitus without complications Status: Acute Plan: A1C was 6.4 in September 2016. Will need to check blood glucose frequently as outpatient. ISS. can see how much insulin she requires at this point with the lifestyle changes she has made (3) Hyperlipidemia ICD Codes: E78.5 - Hyperlipidemia Status: Acute Plan: Continue statin (4) UTI (urinary tract infection) ICD Codes: N39.0 - Urinary tract infection, site not specified Status: Acute Plan: UA showing trace Leuk esterase, few WBCs. Rocephin 1 g q 24 hours during hospitalization. can watch for culture as outpt. this was likely not a good clean catch as she was very delirious when she came in the hospital (5) Visual hallucinations ICD Codes: R44.1 - Visual hallucinations Plan: Cancelled psychiatry consult for new visual hallucinations. She had medical reasons to have the visual hallucinations which are almost always medical and not Psychiatric. She has no Psychiatric history and has no problems at all this am (6) Seizure disorder ICD Codes: G40.909 - Epilepsy, unspecified, not intractable, without status epilepticus Plan: No recent evidence of seizure. Continue carbamazepine at and gabapentin TID. she requested stopping her seizure meds and I recommended she see Neuro as an outpt to see if she can stop these. I cautioned her against stopping without checking with them first as she could have another seizure (7) Insomnia ICD Codes: G47.00 - Insomnia, unspecified Plan: Amitriptyline 100 mg q Hs. discussed with her the many side effects of this med at high doses. as she has lost weight, she agreed to try a reduced dose of 75 mg instead of 100 mg, maybe even 50 would be a better dose if tolerated (8) Nutrition, metabolism, and development symptoms ICD Codes: R63.8 - Other symptoms and signs concerning food and fluid intake Plan: Diet: Diabetic Fluids: By mouth DVT ppx: SCDs Electrolytes: K+ 3.3 on admission - given 30 mEq KCL in ED. Continue to monitor. Otherwise at goal. Problem Qualifiers (1) Diabetes mellitus: Qualified Codes: E11.42 - Type 2 diabetes mellitus with diabetic polyneuropathy ; Z79.4 - bed bug exterminator (current) use of insulin (2) Hyperlipidemia: Qualified Codes: E78.00 - Pure hypercholesterolemia, unspecified (3) UTI (urinary tract infection): Qualified Codes: N39.0 - Urinary tract infection, site not specified (4) Insomnia: Qualified Codes: G47.00 - Insomnia, unspecified Ashtyn Ashby MD Jan 08, 2017 10:04
[2017-01-08 11:27] VITALS: BP 122/71; PULSE 99; RESP 20; TEMP 98.5; O2SAT 98
[2017-01-08 13:38] LABS: AUTOMATED NEUTROPHIL # 7.2 TH/MM3 (1.8-7.7); BASOPHIL # 0.1 TH/MM3 (0-0.2); BASOPHIL % 0.5 % (0.0-2.0); EOSINOPHIL # 0.1 TH/MM3 (0-0.4); EOSINOPHIL % 1.2 % (0.0-4.0); HEMATOCRIT 35.7 % (35.0-46.0); HEMO FLAGS DIFF FINAL; LYMPH % 31.6 % (9.0-44.0); LYMPHOCYTE # 3.9 TH/MM3 (1.0-4.8); MEAN CELL VOLUME 91.5 FL (80.0-100.0); MEAN CORPUSCULAR HEMOGLOBIN 30.4 PG (27.0-34.0); MEAN CORPUSCULAR HGB CONC 33.3 % (32.0-36.0); MONO % 8.1 % (0.0-8.0); NEUT % 58.6 % (16.0-70.0); PLATELET COUNT 265 TH/MM3 (150-450); RED CELL DISTRIBUTION WIDTH 13.6 % (11.6-17.2); WHITE BLOOD COUNT 12.3 TH/MM3 (4.0-11.0)
[2017-01-08 14:08] LABS: ALT (GPT) 22 U/L (10-53); ANION GAP 7 MEQ/L (5-15); BICARBONATE 22.7 MEQ/L (21.0-32.0); CHLORIDE 106 MEQ/L (98-107); GLOMERULAR FILTRATION RATE 136 ML/MIN (>89); POTASSIUM 3.9 MEQ/L (3.5-5.1); SODIUM (NA) 136 MEQ/L (136-145)
[2017-01-08 14:17] LABS: ALKALINE PHOSPHATASE 82 U/L (45-117); AST (GOT) 19 U/L (15-37); BLOOD UREA NITROGEN 8 MG/DL (7-18); TOTAL BILIRUBIN ADULT 0.2 MG/DL (0.2-1.0)
--- NOTE | 2017-01-08 14:27 | EKG ---
Date Performed: 01/07/2017 Time Performed: 10:23:27 PTAGE: 51 years EKG: Sinus rhythm NORMAL ECG PREVIOUS TRACING : 10/15/2016 23.45 DOCTOR: Sammy Guerrero Interpretating Date/Time 01/08/2017 14:20:47
== END 2017-01-08 16:01 | disposition home or self-care (01) ==
LOC: NEPE 09:12 → NEDA 12:46 → NEPHCDU 16:31
PROVIDERS: ADMIT Family Medicine; ATTEND Family Medicine
DX: E11.649 Type 2 diabetes mellitus with hypoglycemia without coma (principal); I10 Essential (primary) hypertension; M10.9 Gout, unspecified; E78.00 Pure hypercholesterolemia, unspecified; E11.42 Type 2 diabetes mellitus with diabetic polyneuropathy; F17.210 Nicotine dependence, cigarettes, uncomplicated; E86.0 Dehydration; N39.0 Urinary tract infection, site not specified; G40.909 Epilepsy, unspecified, not intractable, without status epilepticus; G47.00 Insomnia, unspecified; R44.1 Visual hallucinations; K58.9 Irritable bowel syndrome, unspecified; Z79.4 Long term (current) use of insulin; Z86.73 Personal history of transient ischemic attack (TIA), and cerebral infarction without residual deficits; Z79.899 Other long term (current) drug therapy; Z79.82 Long term (current) use of aspirin
CPT/HCPCS: 70450; 71010; 80053; 80307; 81001; 82140; 82550; 82552; 82948; 83605; 83735; 84443; 84484; 84681; 85025; 85610; 87040; 87077; 87086; 87149; 87186; 87205; 93005; 96361; 96365; 97162; 99285; G0378; G8987; G8988; J0696; J7030

== ENCOUNTER 2017-08-01 11:28 | Emergency (ER) | payer MEDICARE ==
[~2017-08-01] VITALS: Ht 170.2 cm; Wt 47.0 kg
[~2017-08-01 11:28] MED LIST changes: -ACCUTES19; +ALCO1PAD; -AMIT100T2 PO; +AMIT75TA2 PO; +ASPI-516 CHEW; -ASPI81CH CHEW; +GLUCMIS7; +HYDR0.05 TOPICAL; +INSU-119; -INSU-150; +INSU-98; -LANTINJ SQ; -METF1000 PO; +MOME1SPR2 EACH NARE; +NOVOLOGP2 SQ; +OMEGCAP PO; +OMEP20TA93 PO; +VITA10002 PO; -[UNRECOGNIZED DRUG - OTHER] SC
[2017-08-01 11:34] VITALS: BP 144/67; PULSE 95; RESP 18; TEMP 98.5; O2SAT 98
[2017-08-01] MEDS ORDERED: LANTUS2P SQ (12:11)
--- NOTE | 2017-08-01 12:39 | RADRPT ---
EXAM DATE/TIME: 08/01/2017 12:28 [facility] COMPARISON: No previous studies available for comparison. INDICATIONS : Storage container fell on right shoulder and clavicle, pain with any motion, breathing. MEDICAL HISTORY : None. SURGICAL HISTORY : None. ENCOUNTER: Initial ACUITY: 2 days PAIN SCORE: 10/10 LOCATION: Right clavicle. FINDINGS: Two view examination of the right clavicle demonstrates no evidence of fracture. The sternoclavicula r joints and acromioclavicular joints are maintained. Bony mineralization is normal. CONCLUSION: No acute fracture or joint dislocation. Joseph Calles MD on August 01, 2017 at 12:37 Board Certified Radiologist. This report was verified electronically.
[2017-08-01] MEDS ORDERED: NABU1TAB37 PO (12:45)
--- NOTE | 2017-08-01 12:46 | PD ---
HPI . Clavicle injury Chief Complaint: Injury Time Seen by Provider: 12:10 Travel History International Travel<30 days: No Contact w/Intl Traveler<30days: No Traveled to known affect area: No History of Present Illness HPI Patient presents with chief complaint of an injury to her right clavicle. It occurred 10 hours prior to presentation. She states she was trying to break a fall with an outstretched right arm. Her pain is rated 10/10 and is exacerbated by movement. It is unrelieved by ibuprofen. She denies any other associated injuries. PFSH Past Medical History Blood Disorders: No Cardiovascular Problems: Yes Cerebrovascular Accident: Yes (TIA) Diabetes: Yes (METFORMIN) Diminished Hearing: No Endocrine: No Gastrointestinal Disorders: No Gout: Yes Genitourinary: No Headaches: Yes Immune Disorder: No Musculoskeletal: No Reproductive: No Respiratory: No Migraines: No Seizures: Yes Ulcer: Yes (GASTRIC) Ovarian Cysts: Yes Past Surgical History Abdominal Surgery: Yes Cardiac Surgery: No Ear Surgery: No Endocrine Surgery: No Eye Surgery: No Genitourinary Surgery: No Gynecologic Surgery: Yes (OVARIAN CYSTS REMOVAL) Neurologic Surgery: No Oral Surgery: No Thoracic Surgery: No Other Surgery: Yes (3 yrs. cyst removal of stomach) Social History Alcohol Use: Yes (occassional) Tobacco Use: Yes (5 cig a day, today) Substance Use: No Allergies-Medications (Allergen,Severity, Reaction): Coded Allergies: No Known Allergies (Verified Adverse Reaction, Unknown, 08/01/17) Reported Meds & Prescriptions Reported Meds & Active Scripts Active Omeprazole 20 Mg Tab 20 Mg PO DAILY [place]-3 Fish Oil/Vitamin (Fish Oil-Cholecalciferol) 1,000-1,000 Mg Cap 1 Cap PO DAILY Amitriptyline (Amitriptyline HCl) 75 Mg Tab 75 Mg PO HS Vitamin B-12 (Cyanocobalamin) 1,000 Mcg Tab 1,000 Mcg PO DAILY Aspirin 81 Mg Chew 81 Mg CHEW DAILY Lovastatin 40 Mg Tab 40 Mg PO DAILY Lasix (Furosemide) 20 Mg Tab 20 Mg PO DAILY Carbamazepine 200 Mg Tab 200 Mg PO TID Metoprolol Tartrate 25 Mg Tab 25 Mg PO BID Gabapentin 300 Mg Cap 300 Mg PO TID Allopurinol 100 Mg Tab 100 Mg PO DAILY Lisinopril 5 Mg Tab 5 Mg PO DAILY Reported Lantus Inj (Insulin Glargine) 1,000 Unit/10 Ml Vial 20 Units SQ DAILY Review of Systems Except as stated in HPI: all other systems reviewed are Neg Physical Exam Narrative GENERAL: Awake and alert and in no acute distress. SKIN: Warm and dry. Intact. HEAD: Normocephalic/atraumatic. EYES: Pupils are equal. Extraocular movements are intact. NECK: Normal range of motion. CARDIOVASCULAR: Regular rate and rhythm. RESPIRATORY: Nonlabored respirations. MUSCULOSKELETAL: Diffusely tender along the right clavicle. No obvious deformity. No crepitus. Distally neurovascularly intact. NEUROLOGICAL: Nonfocal. PSYCHIATRIC: Appropriate mood and affect. Data Data Last Documented VS Vital Signs Date Time Temp Pulse Resp B/P (MAP) Pulse Ox O2 Delivery O2 Flow Rate FiO2 08/01/17 11:34 98.5 95 18 144/67 (92) 98 Orders Orders Clavicle (08/01/17 12:09) [facility] Medical Decision Making Medical Screen Exam Complete: Yes Emergency Medical Condition: Yes Differential Diagnosis Differential diagnosis of extremity trauma includes but is not limited to fracture, sprain or strain, dislocation, contusion Narrative Course Patient presents with the chief complaint of an injury to her right clavicle. Her exam is really unremarkable and that there is no deformity and no bruising or swelling. The x-ray shows no fracture. There is no obvious AC subluxation. The x-ray was independently reviewed by me. I will discharge her to home with a sling. Ice to the area as needed for pain. Diagnosis Primary Impression: Contusion of right clavicle Qualified Codes: S40.011A - Contusion of right shoulder, initial encounter Patient Instructions: Contusion in Adults (DC), General Instructions Additional Instructions: Sling for comfort. Ice to the area as needed for pain. Med/Other Pt SpecificInfo: Prescription(s) given Scripts Nabumetone (Nabumetone) 500 Mg Tab 500 MG PO BID for Pain-Inflammation, #60 TAB 0 Refills Prov: Antonia Sena MD 08/01/17 Disposition: 01 DISCHARGE HOME Condition: Stable Antonia Sena MD August 01, 2017 12:46
[2017-08-01 13:05] VITALS: BP 130/71; TEMP 97.8
== END 2017-08-01 13:05 | disposition home or self-care (01) ==
LOC: NEPD 11:28
DX: S40.011A Contusion of right shoulder, initial encounter (principal); W20.8XXA Other cause of strike by thrown, projected or falling object, initial encounter
CPT/HCPCS: 73000; 99283